=== PATIENT | female | born 1995 | race Caucasian/White ===

== ENCOUNTER 2018-11-24 08:33 | Emergency (ER) | payer OTHER, MEDICAID ==
[~2018-11-24] VITALS: Ht 167.6 cm; Wt 59.0 kg
[2018-11-24 10:32] VITALS: BP 110/68
== END 2018-11-24 10:32 | disposition home or self-care (01) ==
LOC: ER 08:33
DX: F41.0 Panic disorder [episodic paroxysmal anxiety] (principal)
CPT/HCPCS: 99284